=== PATIENT | female | born 1945 | race Caucasian/White ===

== ENCOUNTER 2018-03-29 06:50 | Emergency (ER) | payer OTHER ==
[~2018-03-29] VITALS: Ht 152.4 cm; Wt 53.5 kg
[2018-03-29 06:52] VITALS: BP 178/84
[2018-03-29] MEDS ORDERED: KETOROLAC 30 MG/1 ML ONE (07:06)
[2018-03-29] MEDS ORDERED: DIAZEPAM 5 MG TABLET ONE (07:06)
[2018-03-29] MEDS ORDERED: KETOROLAC 30 MG/1 ML IM ONE (07:30)
[2018-03-29] MEDS ORDERED: DIAZEPAM 5 MG TABLET PO ONE (07:30)
[2018-03-29] MEDS ORDERED: OXYcodone/APAP 5/325MG TABLET PO ONE (07:30)
[2018-03-29] MEDS ORDERED: OXYcodone/APAP 5/325MG TABLET ONE (07:43)
== END 2018-03-29 08:48 | disposition home or self-care (01) ==
LOC: ED 08:30
DX: G89.29 Other chronic pain (principal); M25.511 Pain in right shoulder
CPT/HCPCS: 73030; 96372; 99284; J1885